=== PATIENT | male | born 1970 | race Caucasian/White ===

== ENCOUNTER 2018-05-02 08:27 | Emergency (ER) | payer SELFPAY ==
[~2018-05-02] VITALS: Ht 175.3 cm; Wt 72.6 kg
[2018-05-02 08:46] VITALS: BP 121/77
[2018-05-02] MEDS ORDERED: cefTRIAXone SOD 1,000 MG VL IM ONE (09:00)
[2018-05-02] MEDS ORDERED: IBUPROFEN 800 MG TAB PO ONE (09:00)
== END 2018-05-02 09:35 | disposition home or self-care (01) ==
LOC: ER 08:27
DX: L03.317 Cellulitis of buttock (principal); F17.210 Nicotine dependence, cigarettes, uncomplicated; Z88.0 Allergy status to penicillin
CPT/HCPCS: 96372; 99283; J0696

== ENCOUNTER 2018-05-26 08:46 | Inpatient (IN) | payer SELFPAY ==
[~2018-05-26] VITALS: Ht 175.3 cm; Wt 70.5 kg
[2018-05-26 10:24] LABS: Urine Bacteria NONE SEEN /hpf (None Seen); Urine Blood TRACE /uL (Negative); Urine Specific Gravity 1.014 (1.001-1.035); Urine WBC <1 /hpf (0 - 3)
[2018-05-26 11:17] LABS: Basophils # (auto) 0.1 uL; Eosinophils # (auto) 0.1 uL
[2018-05-26 11:20] LABS: Basophils % (auto) 0.8 % (0.0-2.0); Eosinophils % (auto) 0.9 % (0.0-7.0); Hematocrit 29.6 % (41.0-53.0); Hemoglobin 9.9 g/dL (13.5-17.5); Lymphocytes % (auto) 19.9 % (10.0-50.0); Mean Corpuscular Hemoglobin 30.7 pg (28.0-32.0); Mean Corpuscular Hgb Conc. 33.5 g/dL (32.0-36.0); Mean Corpuscular Volume 91.6 fL (80.0-100.0); Monocytes % (auto) 10.6 % (0.0-12.0); Neutrophils # (auto) 6.7 uL; Neutrophils % (auto) 67.8 % (37.0-80.0); Red Blood Cells 3.23 10^6/uL (4.5-5.90); Red Cell Distribution Width 14.6 % (11.8-14.3); White Blood Cell 9.8 10^3/uL (4.4-10.8)
[2018-05-26 11:31] LABS: Potassium 4.5 mmol/L (3.5-5.1)
[2018-05-26 11:39] LABS: Albumin 2.6 g/dL (3.4-5.0); BUN/Creatinine Ratio 12.7; Bilirubin, Total 0.4 mg/dL (0.2-1.0); Calcium 8.9 mg/dL (8.5-10.1)
[2018-05-26 12:14] LABS: Platelet Count (auto) 499 10^3/uL (140-450)
[2018-05-26] MEDS ORDERED: IOHEXOL 300 MG/ML 100ML BOTTLE IJ ONE (13:49)
[2018-05-26] MEDS ORDERED: MORPHINE SULFATE 4 MG/ML SYR/VIAL IV ONE (15:15)
[2018-05-26] MEDS ORDERED: PROMETHAZINE HCL 25 MG/ML 1ML IV ONE (15:15)
[2018-05-26] MEDS ORDERED: SODIUM CHLORIDE 0.9% 1,000 ML IV ONE (16:25)
[2018-05-26 17:10] LABS: Magnesium 2.3 mg/dL (1.6-2.6)
[2018-05-26] MEDS ORDERED: MORPHINE SULFATE 4 MG/ML SYR/VIAL IV PRN (17:45)
[2018-05-26] MEDS ORDERED: PROMETHAZINE HCL 25 MG/ML 1ML IV PRN (17:45)
[2018-05-26] MEDS ORDERED: NITROGLYCERIN 0.4 MG SL TAB SL PRN (17:45)
[2018-05-26] MEDS ORDERED: TEMAZEPAM 15 MG CAP PO PRN (17:45)
[2018-05-26] MEDS ORDERED: LEVOFLOXACIN 500MG 100 ML IV ONE ×2 (17:45→21:30)
[2018-05-26] MEDS ORDERED: ACETAMINOPHEN 500 MG TAB PO PRN (17:45)
[2018-05-26 19:50] VITALS: BP 129/83
[2018-05-26] MEDS: MORPHINE SULFATE 4 MG/ML SYR/VIAL IV PRN ×2 (20:00→23:55)
--- NOTE | 2018-05-26 20:00 | NUR ---
Admitted to room 281B awake alert and oriented. Ambulatory. Complains of pain to right upper quadrant. IV patent and infusing. Oriented to room and policies. Call light within reach and bed low.
[2018-05-26 22:00] VITALS: BP 129/83
[2018-05-26] MEDS: SODIUM CHLORIDE 0.9% 1,000 ML IV SCH (22:00)
[2018-05-26] MEDS: HYDROcodone-ACET 5/325MG TAB PO PRN (22:44)
--- NOTE | 2018-05-27 00:10 | NUR ---
Pageverenice JARRETT regarding patient yelling out in pain. Awaiting return phone call
[2018-05-27] MEDS ORDERED: MORPHINE SULFATE 4 MG/ML SYR/VIAL IV ONE ×2 (01:00)
[2018-05-27] MEDS: SODIUM CHLORIDE 0.9% 1,000 ML IV SCH ×3 (03:41→23:41)
[2018-05-27 05:00] VITALS: BP 109/52
[2018-05-27] MEDS: MORPHINE SULFATE 4 MG/ML SYR/VIAL IV PRN ×5 (05:39→22:43)
--- NOTE | 2018-05-27 05:42 | NUR ---
Patient yells out and is rude and aggressive. Refusing labs. Pain meds given
[2018-05-27] MEDS: LORazepam 0.5 MG TAB PO PRN ×2 (07:54→15:50)
[2018-05-27 08:39] VITALS: BP 130/81
[2018-05-27] MEDS: PANTOPRAZOLE 40 MG TAB PO SCH (09:52)
[2018-05-27 17:02] VITALS: BP 155/62
[2018-05-27] MEDS: HYDROcodone-ACET 5/325MG TAB PO PRN (17:39)
--- NOTE | 2018-05-27 19:30 | NUR ---
Opening Shift Note Assumed care of patient, awake and alert x4. No S/S of distress/SOB. C/O pain to right upper quadrant of abdomen. Instructed on POC and to call for assist PRN, will continue to monitor for changes Q1hr and PRN. Awaiting Dr. Corley to see patient
[2018-05-27] MEDS ORDERED: LEVOFLOXACIN 500MG 100 ML IV SCH (21:00)
[2018-05-28] MEDS: MORPHINE SULFATE 4 MG/ML SYR/VIAL IV PRN ×4 (02:39→14:42)
--- NOTE | 2018-05-28 03:40 | NUR ---
RECEIVED PATIENT FROM SEBASTIÁN VALADEZ. PATIENT RESTING COMFORTABLY IN BED, NO S/S OF DISTRESS OR SOB. PATIENT A/O X4, AMBULATORY. WILL CONTINUE TO MONITOR PATIENT.
[2018-05-28] MEDS: HYDROcodone-ACET 5/325MG TAB PO PRN (03:43)
[2018-05-28 05:00] VITALS: BP 126/65
[2018-05-28] MEDS: LORazepam 0.5 MG TAB PO PRN (06:51)
--- NOTE | 2018-05-28 07:40 | NUR ---
OPENING SHIFT NOTE ASSUMED CARE OF PATIENT. PATIENT RESTING COMFORTABLY IN BED WITH EYES CLOSED. RESPIRATIONS EVEN AND UNLABORED. BED IN LOWEST LOCKED POSITION, CALL LIGHT WITHIN REACH. CONTINUING TO MONITOR.
[2018-05-28 09:00] VITALS: BP 117/83
[2018-05-28] MEDS: PANTOPRAZOLE 40 MG TAB PO SCH (10:15)
[2018-05-28 13:00] VITALS: BP 134/75
--- NOTE | 2018-05-28 16:15 | NUR ---
AT BEDSIDE DR VERGARA AT BEDSIDE AT THIS TIME. NEW ORDER RECEIVED. WILL CARRY OUT ORDER RECEIVED AND CONTINUE TO MONITOR.
[2018-05-28] MEDS ORDERED: MORPHINE SULF INJ 2 MG/ML SYRINGE 1ML IV ONE (17:00)
--- NOTE | 2018-05-28 17:35 | NUR ---
PATIENT LEFT AMA AFTER MD SPOKE WITH PATIENT WITH MOTHER AT BEDSIDE PATIENT DECIDED TO LEAVE AMA. PATIENT WAS GIVEN ALL OPTIONS AT THIS TIME. PATIENT WAS INFORMED THAT WE ARE UNABLE TO DO PROCEDURE AT THIS HOSPITAL, THEREFORE TRANSFER TO HIGHER LEVEL OF CARE IS NECESSARY. AT THIS TIME PATIENT ASKED HOW LONG IT WOULD TAKE DUE TO NO INSURANCE AND PATIENT WAS INFORMED THAT IT COULD TAKE A DAY TO WEEKS DEPENDING ON AN ACCEPTING FACILITY BEING AVAILABLE. PATIENT AND HIS MOTHER PUSHED FOR OTHER OPTIONS, EVEN REQUESTING PATIENT ADVOCACY. AT THIS TIME DR VERGARA INFORMED GOING AGAINST HIS ADVICE OF STAYING WITHIN THE HOSPITAL AWAITING TRANSFER HE CAN SIGN FORM AGAINST MEDICAL ADVICE TO LEAVE AND GO [place] [facility] [place] [facility] [place]. PATIENT REQUESTED TO HAVE IV REMOVED SO HE COULD LEAVE AND REFUSED TO SIGN AMA FORM AT THIS TIME. IV WAS REMOVED USING CLEAN STERILE TECHNIQUE, CATHETER WAS INTACT UPON REMOVAL. PRESSURE DRESSING APPLIED. THIS RN INFORMED PATIENT TO HAVE HIS MOTHER DRIVE HE RECENTLY RECEIVED 2MG MORPHINE VIA IV AND IT WOULD IMPAIR HIS ABILITY TO DRIVE AND REACTION TIMES. PATIENT'S MOTHER VERBALIZED THAT SHE WOULD BE DRIVING. PATIENT SHOWED NO S/S OF DISTRESS UPON DEPARTURE.
[2018-05-29] MEDS ORDERED: cefTRIAXone 1GM/50ML D5W 50 ML IV SCH (09:00)
== END 2018-05-28 17:20 | disposition left against medical advice (07) | DRG 699 ==
LOC: ER 08:46 → TELE 17:41 → TELE-WESTW 19:57 → WEST WING 05-28 03:30
PROVIDERS: ADMIT Internal Medicine; ATTEND Internal Medicine
DX: N28.89 Other specified disorders of kidney and ureter (principal); E44.0 Moderate protein-calorie malnutrition; S37.019A Minor contusion of unspecified kidney, initial encounter; D63.1 Anemia in chronic kidney disease; F17.210 Nicotine dependence, cigarettes, uncomplicated; N18.9 Chronic kidney disease, unspecified; N20.0 Calculus of kidney; N18.2 Chronic kidney disease, stage 2 (mild); X58.XXXA Exposure to other specified factors, initial encounter; Z80.0 Family history of malignant neoplasm of digestive organs; Z82.49 Family history of ischemic heart disease and other diseases of the circulatory system; Z90.5 Acquired absence of kidney; Z88.0 Allergy status to penicillin; Y93.89 Activity, other specified; Y92.89 Other specified places as the place of occurrence of the external cause; Z68.23 Body mass index [BMI] 23.0-23.9, adult
CPT/HCPCS: 36415; 71046; 74176; 74178; 80053; 81001; 83690; 83735; 84443; 85025; 87086; 93005; 96361; 96365; 96375; G0378; J1956